=== PATIENT | male | born 2000 | race Two or more races ===

== ENCOUNTER 2019-02-17 08:12 | Emergency (ER) | payer OTHER ==
[2019-02-17 09:27] VITALS: BP 139/122
--- NOTE | 2019-02-17 10:02 | ED Physician Documentation ---
PD HPI SKIN - Stated complaint Stated Complaint: R EYE SWELLING - Chief complaint Chief Complaint: Heent - History obtained from History obtained from: Patient, Family - History of Present Illness Timing - onset: Yesterday Timing - duration: Days (1) Timing - details: Gradual onset, Still present Location: Face Quality / character: Painful, Discolored, Raised Associated symptoms: Facial swelling. No: Fever, Myalgias, Joint pain, Headache, Dyspnea, Abd pain Contributing factors: Exposed to medication. No: Exposed to food Similar symptoms before: Has not had sx before Recently seen: Not recently seen - Additional information Additional information: 18-year-old male who is undergoing treatment for acne vulgaris with Accutane has developed some swelling and redness to the right cheek and this morning when he awakened he had his eyes swollen shut. He does not have any conjunctival irritation or change in his vision. He now has decreased swelling after being upright. He denies any fever. He has been on the Accutane for about 4 months and has recently increased his dose to 80 mg. Review of Systems Constitutional: denies: Fever Eyes: denies: Loss of vision, Decreased vision, Photophobia, Discharge, Irritation Ears: denies: Ear pain Nose: denies: Rhinorrhea / runny nose, Congestion Throat: denies: Sore throat Respiratory: denies: Dyspnea, Cough GI: denies: Vomiting Skin: reports: Other (swelling and redness to the right cheek) Musculoskeletal: denies: Neck pain, Back pain, Extremity pain Neurologic: denies: Generalized weakness, Focal weakness, Numbness PD PAST MEDICAL HISTORY - Past Medical History Cardiovascular: None Respiratory: None Neuro: None Endocrine/Autoimmune: None GI: None : None HEENT: None Psych: None Musculoskeletal: None Derm: Other Other Past Medical History: chronic acne - Past Surgical History Past Surgical History: No - Present Medications Home Medications: Ambulatory Orders Medication Instructions Recorded Confirmed Sulfamethoxazole/Trimethoprim 1 each PO BID #14 tablet 02/17/19 [Sulfamethoxazole-Tmp Ds Tablet] - Allergies Allergies/Adverse Reactions: Allergies Allergy/AdvReac Type Severity Reaction Status Date / Time No Known Drug Allergies Allergy Verified 02/17/19 08:21 - Social History Does the pt smoke?: No Smoking Status: Never smoker Does the pt drink ETOH?: No Does the pt have substance abuse?: No - Immunizations Immunizations are current?: Yes - POLST Patient has POLST: No PD ED PE NORMAL - Vitals Vital signs reviewed: Yes (hypertensive) - General General: Alert and oriented X 3, No acute distress, Well developed/nourished - HEENT HEENT: Atraumatic, PERRL, EOMI, Other (There is swelling and point tenderness under the right cheek there is no fluctuance to the area there is an area involved about 2 cm x 3 cm and there is no involvement of the conjunctive a or the sclera. Extraocular movements are intact.) - Neck Neck: Supple, no meningeal sign - Respiratory Respiratory: No respiratory distress - Derm Derm: Normal color, Warm and dry, Other (See above face) - Extremities Extremities: No deformity, No edema, No calf tenderness / cord - Neuro Neuro: Alert and oriented X 3, door patcher 2-12 intact, No motor deficit, No sensory deficit, Normal speech Eye Opening: Spontaneous Motor: Obeys Commands Verbal: Oriented GCS Score: 15 - Psych Psych: Normal mood, Normal affect Results - Vitals Vitals: Vital Signs - 24 hr 02/17/19 02/17/19 08:19 09:25 Temperature 36.5 C 36.5 C Heart Rate 94 87 Respiratory 16 16 Rate Blood Pressure 146/79 H 139/122 H O2 Saturation 100 100 Oxygen O2 Source Room air PD MEDICAL DECISION MAKING - ED course Complexity details: considered differential, d/w patient, d/w family ED course: 18-year-old male with a right cheek facial cellulitis without evidence of abscess formation at this time. We will place him on some Septra and warm compresses and expect resolution. Departure - Departure Disposition: 01 Home, Self Care Clinical Impression: Facial abscess Condition: Stable Instructions: ED Staph Infec Abx Tx Only Follow-Up: Your, doctor [Other] Prescriptions: Sulfamethoxazole/Trimethoprim [Sulfamethoxazole-Tmp Ds Tablet] 1 each PO BID #14 tablet Comments: Take the antibiotic as prescribed twice per day and use a warm compress for about 10 minutes at a time 2-3 times per day. Expect redness and swelling to improve and if it worsens or you develop fluctuance to the area return to the emergency department
== END 2019-02-17 10:08 | disposition home or self-care (01) ==
LOC: ED 08:12
DX: L03.211 Cellulitis of face (principal); L70.0 Acne vulgaris
CPT/HCPCS: 99282; 99284